=== PATIENT | female | born 1965 | race Caucasian/White ===

== ENCOUNTER 2018-04-27 08:12 | Emergency (ER) | payer OTHER ==
[~2018-04-27] VITALS: Ht 165.1 cm; Wt 117.9 kg
[2018-04-27 08:17] VITALS: Ht 165.1 cm; Wt 117.9 kg
[2018-04-27 10:29] VITALS: BP 102/71
== END 2018-04-27 11:42 | disposition home or self-care (01) ==
LOC: ED 08:12
DX: M25.511 Pain in right shoulder (principal); M06.9 Rheumatoid arthritis, unspecified; Z90.49 Acquired absence of other specified parts of digestive tract; Z98.890 Other specified postprocedural states
CPT/HCPCS: J3010; Q0162